=== PATIENT | female | born 1955 | race Caucasian/White ===

== ENCOUNTER 2018-09-29 01:49 | Emergency (ER) | payer MEDICARE, MEDICAID ==
--- NOTE | 2018-09-29 02:15 | ED Physician Chart ---
ED Chief Complaint/HPI - Patient Information Date Seen:: 09/29/18 Time Seen:: 02:10 Chief Complaint:: Right tongue swelling History of Present Illness:: 62 yo female had left breast cancer undergoing chemotherapy, Capecitabine, for one year. Pt did not receive surgical resection of tumor due to "slow heart beats" and "heart murmur". Pt developed right tongue swelling, right ear itchy when she was sleeping. Pt was awaken by inability to swallow saliva. Pt felt that breathing was blocked. Pt had beans, milk and honey at dinner. Allergies:: Allergies Allergy/AdvReac Type Severity Reaction Status Date / Time No Known Allergies Allergy Verified 09/29/18 02:03 ED Review of Systems - Review of Systems General/Constitutional: No fever, No chills Skin: No rash Head: No headache Eyes: No pain ENT: No nasal drainage Neck: No neck pain Cardio Vascular: No chest pain Pulmonary: SOB GI: No nausea, No vomiting Musculoskeletal: No bone or joint pain Neurological: No focal symptoms ED Past Medical History - Past Medical History Past Medical History: HTN, DM, Other (obesity, left breast cancer ) Social History: Non Smoker, No Alcohol, No Drug Use Surgical History: None Family Medical History - Family Member Mother Ethnicity: Living Status: Still Living Hx Family Coronary Artery Disease: Yes ED Physical Exam - Physical Examination General/Constitutional: Awake, Alert Head: Atraumatic Eyes: PERRL, EOMI Skin: No skin lesions Other ENMT comments:: Right side tongue swelling Respiratory: No Wheeze/Rhonchi/Rales Cardio Vascular: RRR, No murmur, gallop, rubs, NL S1 S2 GI: No tenderness/rebounding/guarding Extremities: normal strength in all extremities Neuro/Psych: No focal deficits ED Assessment - Assessment General Assessment: Allergic glossitis Assessment/Comments:: Solu Medrol 125 mg IV through [facility] Benadryl 25 mg IV through [facility] Heparin 1000 unit to infuse [facility] ED Septic Shock - . Is Septic Shock (SBP<90, OR Lactate>4 mmol\\L) present?: No ED Reassessment (Disposition) - Reassessment Reassessment Condition:: Improved - Aftercare/Follow up Instructions Notes:: D/c home F/u PCP or return to ER if symptoms worsen - Patient Disposition Discharge/Transfer:: Home
[2018-09-29] MEDS ORDERED: Heparin Sod 1,000Units/ML 1,000 UNITS/ML VIAL IVP ONE (03:08)
[2018-09-29] MEDS ORDERED: Heparin Sod 5,000Units/ML 5,000 UNITS/ML VIAL ONE (03:10)
[2018-09-29] MEDS ORDERED: Heparin Sod 1,000Units/ML 1,000 UNITS/ML VIAL ONE (03:20)
== END 2018-09-29 04:04 | disposition home or self-care (01) ==
LOC: ER 01:49
DX: K14.0 Glossitis (principal); I10 Essential (primary) hypertension; E11.9 Type 2 diabetes mellitus without complications
CPT/HCPCS: 99283; 96374; 96375; J2930; J1644; J1200; Z7502